=== PATIENT | male | born 1990 | race Two or more races ===

== ENCOUNTER → 2018-04-21 | Outpatient (CLI) | payer OTHER | END | disposition home or self-care (01) | LOC: US 06:30 | DX: K82.8 Other specified diseases of gallbladder (principal) | CPT/HCPCS: 76700 ==

== ENCOUNTER 2019-11-09 11:00 | Emergency (ER) | payer SELFPAY ==
[2019-11-09] MEDS ORDERED: IV NORMAL SALINE 1000ML BAG 1,000 ML IV ONE ×2 (11:45→13:30)
[2019-11-09 11:57] LABS: BASO % 1 % (0-3); EOS % 0 % (0-3); HEMATOCRIT 34.4 % (39.0-53.0); HEMOGLOBIN 11.1 g/dL (13.0-17.5); LYMPH # 0.8 x10^3/uL (1.0-4.8); LYMPH % 21 % (24-48); MEAN CORPUSCULAR HEMOGLOBIN 24 pg (25-35); MEAN CORPUSCULAR HGB CONC 32 g/dL (31-37); MEAN CORPUSCULAR VOLUME 75 fL (79-100); MONO # 0.6 x10^3/uL (0.0-1.1); MONO % 16 % (0-9); NEUT # 2.6 x10^3/uL (1.8-7.7); NEUT % 63 % (31-73); PLATELET COUNT 209 x10^3/uL (140-400); RED CELL DISTRIBUTION WIDTH 15.6 % (11.5-14.5); WHITE BLOOD COUNT 4.1 x10^3/uL (4.0-11.0)
[2019-11-09 12:05] LABS: BILIRUBIN,URINE NEGATIVE (NEG); CLARITY,URINE CLEAR; COLOR,URINE YELLOW; NITRITE,URINE NEGATIVE (NEG); PH,URINE 6.5; PROTEIN,URINE NEGATIVE (NEG-TRACE)
[2019-11-09 12:08] LABS: BACTERIA,URINE FEW /HPF (0-FEW); RBC,URINE 0 /HPF (0-2)
[2019-11-09 12:18] LABS: CALCIUM 8.3 mg/dL (8.5-10.1); CREATININE 1.2 mg/dL (0.7-1.3); GFR 71.6; POTASSIUM 3.7 mmol/L (3.5-5.1)
[2019-11-09 12:24] LABS: ALBUMIN 3.6 g/dL (3.4-5.0); ALBUMIN/GLOBULIN RATIO 0.9 (1.0-1.7); C-REACTIVE PROTEIN 16.2 mg/L (0-3.3); TOTAL BILIRUBIN 0.2 mg/dL (0.2-1.0); TOTAL PROTEIN 7.5 g/dL (6.4-8.2)
[2019-11-09] MEDS ORDERED: ONDANSETRON PF 4 MG/2 ML VIAL. IVP ONE (13:30)
[2019-11-09] MEDS ORDERED: MORPHINE SULFATE 4 MG/ML VIAL. IV ONE (13:30)
--- NOTE | 2019-11-09 14:07 | PHYS DOC ---
Past Medical History Alcohol Use: None Adult General Chief Complaint Chief Complaint: DIARRHEA HPI HPI Patient is a 28 year old male who presents with intermittent watery diarrhea 3 weeks, dizziness lightheadedness and fever 4 days. Patient reports bloody diarrhea. History of hemorrhoids. Has not measured fever. He is taken [id number] medications without relief. He has not been evaluated by his primary care physician. No foreign travel, antibiotics. No other acute symptoms or complaints.[] Review of Systems Review of Systems ROS as per HPI All other systems were reviewed and found to be within normal limits, except as documented in this note. Current Medications Current Medications Current Medications Medications (Trade) Dose Ordered Sig/Page Start Time Stop Time Status Last Admin Dose Admin Info (CONTRAST GIVEN -- Rx MONITORING) 1 each PRN DAILY PRN 11/09/19 14:15 11/11/19 14:14 Iohexol (Omnipaque 300 Mg/ml) 75 ml 1X ONCE 11/09/19 14:15 11/09/19 14:16 DC 11/09/19 14:31 75 ML Levofloxacin (Levaquin) 750 mg 1X ONCE 11/09/19 16:15 11/09/19 16:16 Metronidazole (Flagyl) 500 mg 1X ONCE 11/09/19 16:15 11/09/19 16:16 Morphine Sulfate (Morphine Sulfate) 4 mg 1X ONCE 11/09/19 13:30 11/09/19 13:32 DC 11/09/19 13:57 4 MG Ondansetron HCl (Zofran) 4 mg 1X ONCE 11/09/19 13:30 11/09/19 13:32 DC 11/09/19 13:58 4 MG Sodium Chloride 1,000 ml @ 1,000 mls/hr 1X ONCE 11/09/19 13:30 11/09/19 14:29 DC 11/09/19 13:57 1,000 MLS/HR Allergies Allergies Allergies Coded Allergies Type Severity Reaction Last Updated Verified No Known Drug Allergies 11/09/19 No Physical Exam Physical Exam Constitutional: Well developed, well nourished, no acute distress, non-toxic appearance. [] HENT: Normocephalic, atraumatic, bilateral external ears normal, oropharynx moist, nose normal. [] Eyes: PERRLA, EOMI, conjunctiva normal, no discharge. [] Neck: Normal range of motion, no tenderness. [] Cardiovascular:Heart rate regular rhythm, no murmur [] Lungs & Thorax: Bilateral breath sounds clear to auscultation [] Abdomen: Bowel sounds normal, soft, nondistended increased bowel sounds. Diffuse midabdominal pain tenderness [] Skin: Warm, dry, no erythema. [] Back: No tenderness. [] Extremities: No tenderness, no edema. [] Neurologic: Alert and oriented X 3, normal motor function, normal sensory function, no focal deficits noted. [] Psychologic: Affect normal, judgement normal, mood normal. [] Current Patient Data Vital Signs Vital Signs Date Time Temp Pulse Resp B/P (MAP) Pulse Ox O2 Delivery O2 Flow Rate FiO2 11/09/19 13:57 23 97 Room Air 11/09/19 11:20 99.1 118 169/80 (109) 99.1 Lab Values Laboratory Tests Test 11/09/19 11:10 11/09/19 11:45 11/09/19 14:50 Urine Collection Type Unknown Urine Color Yellow Urine Clarity Clear Urine pH 6.5 Urine Specific Anna 1.025 Urine Protein Negative mg/dL (NEG-TRACE) Urine Glucose (UA) Negative mg/dL (NEG) Urine Ketones (Stick) Negative mg/dL (NEG) Urine Blood Negative (NEG) Urine Nitrite Negative (NEG) Urine Bilirubin Negative (NEG) Urine Urobilinogen Dipstick 1.0 mg/dL (0.2 mg/dL) Urine Leukocyte Esterase Negative (NEG) Urine RBC 0 /HPF (0-2) Urine WBC 1-4 /HPF (0-4) Urine Bacteria Few /HPF (0-FEW) Urine Mucus Mod /LPF White Blood Count 4.1 x10^3/uL (4.0-11.0) Red Blood Count 4.60 x10^6/uL (4.30-5.70) Hemoglobin 11.1 g/dL (13.0-17.5) L Hematocrit 34.4 % (39.0-53.0) L Mean Corpuscular Volume 75 fL (79-100) L Mean Corpuscular Hemoglobin 24 pg (25-35) L Mean Corpuscular Hemoglobin Concent 32 g/dL (31-37) Red Cell Distribution Width 15.6 % (11.5-14.5) H Platelet Count 209 x10^3/uL (140-400) Neutrophils (%) (Auto) 63 % (31-73) Lymphocytes (%) (Auto) 21 % (24-48) L Monocytes (%) (Auto) 16 % (0-9) H Eosinophils (%) (Auto) 0 % (0-3) Basophils (%) (Auto) 1 % (0-3) Neutrophils # (Auto) 2.6 x10^3/uL (1.8-7.7) Lymphocytes # (Auto) 0.8 x10^3/uL (1.0-4.8) L Monocytes # (Auto) 0.6 x10^3/uL (0.0-1.1) Eosinophils # (Auto) 0.0 x10^3/uL (0.0-0.7) Basophils # (Auto) 0.0 x10^3/uL (0.0-0.2) Sodium Level 136 mmol/L (136-145) Potassium Level 3.7 mmol/L (3.5-5.1) Chloride Level 100 mmol/L (98-107) Carbon Dioxide Level 26 mmol/L (21-32) Anion Gap 10 (6-14) Blood Urea Nitrogen 13 mg/dL (8-26) Creatinine 1.2 mg/dL (0.7-1.3) Estimated GFR (Cockcroft-Gault) 71.6 BUN/Creatinine Ratio 11 (6-20) Glucose Level 129 mg/dL (70-99) H Calcium Level 8.3 mg/dL (8.5-10.1) L Total Bilirubin 0.2 mg/dL (0.2-1.0) Aspartate Amino Transferase (AST) 39 U/L (15-37) H Alanine Aminotransferase (ALT) 40 U/L (16-63) Alkaline Phosphatase 65 U/L (46-116) C-Reactive Protein, Quantitative 16.2 mg/L (0-3.3) H Total Protein 7.5 g/dL (6.4-8.2) Albumin 3.6 g/dL (3.4-5.0) Albumin/Globulin Ratio 0.9 (1.0-1.7) L Lactic Acid Level 0.7 mmol/L (0.4-2.0) Laboratory Tests 11/09/19 11:45 Laboratory Tests 11/09/19 11:45 EKG EKG [] Radiology/Procedures Radiology/Procedures [CT abd/pelvis: Diarrhea., Pneumonia Chest x-ray, right middle lobe infiltrate] Course & Med Decision Making Course & Med Decision Making Pertinent Labs and Imaging studies reviewed. (See chart for details) [Patient with low-grade fever, persistent tachycardia body aches with watery diarrhea. Findings of pneumonia on x-ray. No findings of colitis on CT. Antibiotics given. Symptoms improved. Discharge home instructions to rest, no prescriptions] Dragon Disclaimer Dragon Disclaimer This electronic medical record was generated, in whole or in part, using a voice recognition dictation system. Departure Departure Impression: Primary Impression: Pneumonia Additional Impression: Diarrhea Disposition: ADMITTED INPATIENT Condition: STABLE Referrals: YOLI BOLAÑOS MD (PCP) Scripts Albuterol Sulfate (Proair Hfa) 8.5 Gm Hfa.aer.ad 2 PUFF IH PRN Q4-6HRS PRN for wheezing for 21 Days, #1 INHALER 0 Refills Prov: GIGI GUADARRAMA DO 11/09/19 Metronidazole (FLAGYL) 500 Mg Tablet 1 TAB PO BID, #14 TAB Prov: GIGI GUADARRAMA DO 11/09/19 Levofloxacin (LEVAQUIN) 500 Mg Tablet 1 TAB PO DAILY for 10 Days, #10 TAB 0 Refills Prov: GIGI GUADARRAMA DO 11/09/19 Problem Qualifiers GIGI GUADARRAMA DO Nov 09, 2019 14:07
[2019-11-09] MEDS ORDERED: CONTRAST GIVEN. MC PRN (14:15)
[2019-11-09] MEDS ORDERED: IOHEXOL 300 MG/ML 100ML VIAL. IV ONE (14:15)
--- NOTE | 2019-11-09 14:52 | RAD ---
EXAM: Abdomen and pelvis CT with intravenous contrast. HISTORY: Pain. Bloody diarrhea. TECHNIQUE: Computed tomographic images of the abdomen and pelvis were obtained following the administration of 75 cc Omnipaque 300 intravenous contrast. Multiplanar reformatting was performed. *One or more of the following individualized dose reduction techniques were utilized for this examination: 1. Automated exposure control. 2. Adjustment of the mA and/or kV according to patient size. 3. Use of iterative reconstruction technique. COMPARISON: None. FINDINGS: Evaluation of the lower thorax demonstrates groundglass and nodular infiltrate within the right middle lobe. There is left greater than right posterior dependent and basilar atelectasis. No consolidation or pleural effusion is seen. The heart is normal in size. There is a 4 mm hyperdense lesion within the anterior right hepatic lobe. The gallbladder, pancreas, spleen, adrenal glands, stomach and kidneys are unremarkable. The bladder is unremarkable. There is no appendicitis. No abnormally thickened or dilated loop of bowel is seen. There is no lymphadenopathy. The aorta is normal in caliber. There is no suspicious osseous lesion. IMPRESSION: 1. Nodular and groundglass infiltrate within the right middle lobe, consistent with pneumonia/pneumonitis. 2. Tiny hypodense lesion within the liver, likely a cyst. Electronically signed by: Cari Diamond MD (11/09/2019 2:49 PM) [place] [id number]
--- NOTE | 2019-11-09 15:52 | RAD ---
AP and Lateral Views of the Chest 11/09/2019 4:28 PM Indication: Shortness of breath. Comparison: Chest radiograph January 11, 2011 Findings: Mild bronchovascular thickening is seen. Mild interstitial coarsening is seen. Findings could represent a viral or an atypical infectious process. Heart size is normal. No pneumothorax or pleural effusion is seen. Bony thorax is intact. IMPRESSION: Mild bronchovascular thickening and interstitial coarsening which could represent a viral or atypical infectious process Electronically signed by: Colin Hodgson MD (11/09/2019 3:49 PM) [id number]
[2019-11-09 16:00] VITALS: BP 164/70
[2019-11-09] MEDS ORDERED: LEVO500T59 PO (16:08)
[2019-11-09] MEDS ORDERED: ALBU2.5V8 IH (16:08)
[2019-11-09] MEDS ORDERED: METR500T PO (16:08)
[2019-11-09] MEDS ORDERED: metroNIDAZOLE 500 MG TABLET PO ONE (16:15)
== END 2019-11-09 16:30 | disposition other institution (70) ==
LOC: ER 11:00
DX: J18.9 Pneumonia, unspecified organism (principal); R19.7 Diarrhea, unspecified; R42 Dizziness and giddiness; R50.9 Fever, unspecified
CPT/HCPCS: 36415; 71046; 74177; 80053; 81001; 83605; 85025; 86140; 87040; 96361; 96374; 96375; 99285; J2270; J2405; J7030; Q9967

== ENCOUNTER 2019-12-10 06:04 | Day surgery (SDC) | payer BC ==
[~2019-12-10] VITALS: Ht 180.3 cm; Wt 92.5 kg
[~2019-12-10 06:04] MED LIST: ALBU2.5V8 IH; FERR-36 PO; LEVO500T59 PO; METR500T PO
[2019-12-10] MEDS ORDERED: MORPHINE SULFATE 2 MG/ML VIAL. IV PRN (07:00)
[2019-12-10] MEDS ORDERED: fentaNYL PF VIAL 100 MCG/2 ML VIAL IV PRN ×2 (07:00)
[2019-12-10] MEDS ORDERED: IV RINGERS,LACTATED 1000ML 1,000 ML IV SCH (07:00)
[2019-12-10] MEDS ORDERED: LIDOCAINE 1% PF 2 ML VIAL. ID PRN (07:00)
[2019-12-10] MEDS ORDERED: PROCHLORPERAZINE 10 MG/2 ML VIAL. IV PRN (07:00)
[2019-12-10] MEDS ORDERED: ONDANSETRON PF 4 MG/2 ML VIAL. IV PRN (07:00)
[2019-12-10] MEDS ORDERED: HYDROmorphone 2 MG/ML VIAL IV PRN (07:00)
[2019-12-10] MEDS ORDERED: GELATIN SPONGE SIZE 100. ONE (07:03)
[2019-12-10] MEDS ORDERED: BUPIVACAINE-EPI 0.5%-1:200000 MPF 30 ML VIAL. ONE (07:03)
[2019-12-10] MEDS ORDERED: ROCURONIUM 50 MG/5 ML VIAL. ONE (07:17)
[2019-12-10] MEDS ORDERED: PROPOFOL 20 ML IV ONE (07:17)
[2019-12-10] MEDS ORDERED: ONDANSETRON PF 4 MG/2 ML VIAL. ONE (07:17)
[2019-12-10] MEDS ORDERED: LIDOCAINE 2% PF 5 ML VIAL. ONE (07:17)
[2019-12-10] MEDS ORDERED: DEXAMETHASONE SOD PHOS 4 MG/ML VIAL ONE (07:17)
[2019-12-10] MEDS ORDERED: MIDAZOLAM HCL/PF 2 MG/2 ML VIAL. ONE (07:18)
[2019-12-10] MEDS ORDERED: fentaNYL PF VIAL 100 MCG/2 ML VIAL ONE ×2 (07:18→08:08)
[2019-12-10] MEDS ORDERED: SUCCINYLCHOLINE 200 MG/10 ML VIAL. ONE (07:19)
--- NOTE | 2019-12-10 08:29 | PDOC4 ---
Operative Note Operative Note Operative Note: Preoperative Diagnosis: Hemorrhoids Postoperative Diagnosis: Same Procedure: Hemorrhoidectomy Surgeon: Chapin Anesthesia: Gen. EBL: 20 mL Specimen: Hemorrhoids to pathology Drains: None Complications: None Indication: The patient is a 29-year-old male who was referred due to sympto matic hemorrhoids primarily with bleeding. This has persisted despite medical management and he wishes to proceed with a surgical hemorrhoidectomy. The risks of surgery were discussed which include bleeding, infection, stenosis, recurrence, pain, incontinence, potential need for additional surgery or procedure. He understands and would like to proceed. Description: The patient was taken to the operating room and placed supine on the operating table. Gen. anesthesia was performed. He was then placed in prone jackknife. The perianal skin was prepped with betadine and draped in a standard surgical manner. Initial inspection showed primarily internal hemorrhoids with two quadrants of involvement, one in the left and one in the right. With the LigaSure device the base of each hemorrhoid was sealed and cauterized. The hemorrhoids were fully excised and sent to pathology for evaluation. We completed removal of both quadrants of involvement. A few small bleeding spots were controlled with cautery. Hemostasis was good and no other abnormalities were noted. A Vaseline coated Gelfoam pack was placed in the anal canal. The patient tolerated the procedure well and was sent to the recovery room in stable condition. At the end of the case all counts were correct. DOMINGO CAMACHO MD Dec 10, 2019 08:29
[2019-12-10 08:50] VITALS: BP 137/77
--- NOTE | 2019-12-10 09:04 | DISCH ---
DISCHARGE INSTRUCTIONS Condition on Discharge Condition on Discharge: Stable Activity After Discharge Activity Instructions for Disc: Activity as tolerated Driving Instructions after Dis: Other, see below (no driving while taking pain meds) Diet after Discharge Diet after Discharge: Regular Wound Incision Care Wound/Incision Care: Other, see below (sitz baths BID and after stools) Follow-Up Follow up with: Dr Camacho in 2 weeks in office, call for appt [phone] DOMINGO CAMACHO MD Dec 10, 2019 09:03
[2019-12-10] MEDS ORDERED: OXYC-325 PO (09:10)
[2019-12-10] MEDS ORDERED: DOCU-109 PO (09:11)
[2019-12-10] MEDS ORDERED: oxyCODONE/APAP 5/325 1 TAB TABLET ONE (09:19)
[2019-12-10] MEDS ORDERED: oxyCODONE/APAP 5/325 1 TAB TABLET PO ONE (09:30)
--- NOTE | 2019-12-11 17:06 | PATHOLOGY ---
[facility] Accession Number: [id number] . 01 Material submitted: . hemorrhoids - HEMORRHOID . 01 Clinical history: . hemorrhoids . 02 Diagnosis: Segments of rectal mucosa and submucosal tissue, hemorrhoidectomy: - Hemorrhoids, showing focal mild chronic inflammation. (JPM:gabriel; 12/11/2019) MBR 12/11/2019 1342 Local . 02 Electronically signed: . Gilmar Bell MD, Pathologist NPI- [id number] . 01 Gross description: . The specimen is received in formalin, labeled "Jose Luis Velásquez, hemorrhoid" and consists of 4 segments of pink-purple tissue measuring 3.3 x 1.8 x 0.6 cm in aggregate. Sectioning each reveals dilated spaces containing hemorrhagic material and medical field representative sections are submitted in A1. (SHAWNY; 12/10/2019) SYU/SYU 12/10/2019 1423 Local . 02 Pathologist provided ICD-10: K64.9 . 02 CPT . 540861 Specimen Comment: A courtesy copy of this report has been sent to [phone] Specimen Comment: Report sent to Performed at: 01 [facility] [address] [facility] [address] [address], [place] [id number] MD Justin Hensley MD Phone: [phone] Performed at: 02 [facility] [address] [place], [place] [id number] MD Gilmar Bell MD Phone: [phone]
== END 2019-12-10 09:30 | disposition home or self-care (01) ==
LOC: SURG 06:04
PROVIDERS: ATTEND Surgery
DX: K64.8 Other hemorrhoids (principal); J45.909 Unspecified asthma, uncomplicated; D64.9 Anemia, unspecified; Z87.01 Personal history of pneumonia (recurrent); Z87.891 Personal history of nicotine dependence; Z98.890 Other specified postprocedural states; Z87.39 Personal history of other diseases of the musculoskeletal system and connective tissue
CPT/HCPCS: 46930; A7015; J0330; J0696; J1100; J2001; J2250; J2405; J2704; J3010; J7120; J3490; A4461